=== PATIENT | male | born 1975 | race Native Hawaiian/Other Pacific Islander ===

== ENCOUNTER 2019-11-17 10:14 | Outpatient (CLI) | payer OTHER | END 2019-11-17 21:51 | disposition home or self-care (01) | LOC: CT 10:14 | DX: M79.651 Pain in right thigh (principal); R22.41 Localized swelling, mass and lump, right lower limb | CPT/HCPCS: Q9963 ==

== ENCOUNTER 2019-11-29 12:44 | Outpatient (CLI) | payer BC | END 2019-11-29 19:21 | disposition home or self-care (01) | LOC: CT 12:44 | DX: M79.651 Pain in right thigh (principal); R22.41 Localized swelling, mass and lump, right lower limb | CPT/HCPCS: Q9963 ==